=== PATIENT | male | born 1945 | race Caucasian/White ===

== ENCOUNTER 2016-11-28 10:16 | Day surgery (SDC) | payer OTHER, BC ==
[~2016-11-28] VITALS: Ht 182.9 cm; Wt 108.8 kg
[~2016-11-28 10:16] MED LIST: AMOXICILLIN875 MG PO; CELEBREX200 MG PO; CELEBREX50 MG PO; COUMADIN2.5 MG PO; COUMADIN5 MG PO; MICROZIDE12.5 M1 PO; NITROSTAT0.4 MG SL; ONE DAILY 50 P1 EACH PO; PAXIL40 MG PO; PRAVACHOL80 MG PO; SOTALOL AF160 MG PO; TAMSULOSIN HCL0.4 MG PO; TRICOR145 MG PO; XANAX0.5 MG PO
[2016-11-28 10:52] VITALS: BP 149/80
[2016-11-28 11:09] LABS: ANION GAP 7 MEQ/L (2-14); CHLORIDE 104 MEQ/L (99-109); GFR ESTIMATE (CALCULATED) > 59 mL/min/; GLUCOSE 97 mg/dL (70-99); POTASSIUM 4.1 MEQ/L (3.7-5.4); SAMPLE HEMOLYSIS CHECK 0; SAMPLE ICTERIC CHECK 0; SAMPLE LIPEMIA CHECK 0; SODIUM 142 MEQ/L (136-147); UREA NITROGEN (BUN) 14 mg/dL (9-23)
[2016-11-28 15:30] VITALS: BP 160/69
[2016-11-28 16:21] VITALS: BP 131/65
== END 2016-11-28 16:38 | disposition home or self-care (01) ==
LOC: SDC 10:16
PROVIDERS: Anesthesiology; Urology
DX: N20.1 Calculus of ureter (principal); I48.91 Unspecified atrial fibrillation; Z79.01 Long term (current) use of anticoagulants; N40.0 Benign prostatic hyperplasia without lower urinary tract symptoms; I10 Essential (primary) hypertension
CPT/HCPCS: 74000; 76000; 80048; 82365 90; C1769; C1876; J0690; J1100; J1885; J2405; J3010; J7050

== ENCOUNTER 2017-10-04 16:07 | Day surgery (SDC) | payer OTHER, BC ==
[~2017-10-04] VITALS: Ht 182.9 cm; Wt 111.9 kg
[2017-10-04] MEDS ORDERED: ATORVASTATIN CA80 MG PO (16:27)
[2017-10-04 17:24] LABS: BASOPHIL COUNT 0.1 K/uL (0-0.1); EOSINOPHIL (%) 0.2 % (0-5); IMMATURE GRANULOCYTE (%) 0.5 % (0.0-0.7); IMMATURE GRANULOCYTE COUNT 0.1 K/uL; INSTRUMENT ABS NEUTROPHIL CT 10.5 K/uL; LYMPHOCYTE COUNT 1.2 K/uL (1.0-2.8); MCH 29.8 PG (29.0-34.0); MCHC 33.4 G/DL (30.0-36.0); MCV 89.2 FL (86-99); MEAN PLAT.VOLUME 10.2 uM^3 (9.0-12.4); MONOCYTE (%) 9.7 % (3-12); MONOCYTE COUNT 1.3 K/uL (0-0.8); NEUTROPHIL (%) 79.7 % (45-76); NEUTROPHIL COUNT 10.5 K/uL (1.8-6.4); PLATELET COUNT 226 K/uL (156-360); RBC DIS.WIDTH-CV 13.2 % (11.8-14.6); RBC DIS.WIDTH-SD 43.2 % (39-53); RED BLOOD COUNT 4.93 M/uL (4.00-5.50); WHITE BLOOD COUNT 13.2 K/uL (4.1-10.2)
[2017-10-04 17:34] LABS: CHLORIDE 102 mEq/L (99-109); POTASSIUM 3.7 mEq/L (3.7-5.4); SODIUM 140 mEq/L (136-147)
[2017-10-04 17:36] LABS: GLUCOSE 122 mg/dL (70-99)
[2017-10-04 17:38] LABS: ANION GAP 13 MEQ/L (2-14); TOTAL BILIRUBIN 0.9 mg/dL (0.0-1.0)
[2017-10-04 17:40] LABS: ALKALINE PHOSPHATASE 71 IU/L (3-129); GFR ESTIMATE (CALCULATED) > 59 mL/min/
[2017-10-04 17:41] LABS: UREA NITROGEN (BUN) 14 mg/dL (9-23)
[2017-10-04 18:13] LABS: PROTHROMBIN TIME 12.8 SEC (10.2-12.9)
[2017-10-04 18:16] LABS: INTER. NORMALIZED RATIO 1.1; PTT 29.3 SEC (25-37)
[2017-10-04] MEDS ORDERED: METAXALONE800 MG PO (18:27)
[2017-10-04] MEDS ORDERED: OXYCODONE-APAP1 EAC6 PO (18:28)
[2017-10-04] MEDS ORDERED: ELIQUIS5 MG PO (18:31)
[2017-10-04] MEDS ORDERED: LO-DOSE ASPIRIN81 M2 PO (18:34)
[2017-10-04 22:13] VITALS: BP 132/73
[2017-10-05 00:03] VITALS: BP 114/57
[2017-10-05 04:03] VITALS: BP 136/65
[2017-10-05 07:34] LABS: ADD MIUA? YES; BILIRUBIN NEGATIVE; BLOOD SMALL; COLOR YELLOW ((YELLOW)); GLUCOSE (STRIP) NEGATIVE; KETONES NEGATIVE; LEUKOCYTES NEGATIVE; NITRITE NEGATIVE; PROTEIN (STRIP) NEGATIVE; SPECIFIC GRAVITY 1.017 (1.000-1.030); UROBILINOGEN 0.2 MG/DL (0.2-1.0)
[2017-10-05 07:45] LABS: BACTERIA 1+ /HPF; EPITHELIAL CELLS NONE SEEN /HPF; MUCUS TRACE /LPF; WHITE BLOOD CELLS 0-5 /HPF (0-5)
[2017-10-05 11:34] VITALS: BP 138/66
[2017-10-05 13:48] LABS: MCH 28.8 PG (29.0-34.0); MCHC 31.6 G/DL (30.0-36.0); MCV 90.9 FL (86-99); MEAN PLAT.VOLUME 10.1 uM^3 (9.0-12.4); PLATELET COUNT 230 K/uL (156-360); RBC DIS.WIDTH-CV 12.9 % (11.8-14.6); RBC DIS.WIDTH-SD 43.7 % (39-53); RED BLOOD COUNT 4.73 M/uL (4.00-5.50); WHITE BLOOD COUNT 11.7 K/uL (4.1-10.2)
[2017-10-05 14:40] LABS: ANION GAP 6 MEQ/L (2-14); CHLORIDE 100 MEQ/L (99-109); GFR ESTIMATE (CALCULATED) > 59 mL/min/; GLUCOSE 103 mg/dL (70-99); POTASSIUM 3.5 MEQ/L (3.7-5.4); SAMPLE HEMOLYSIS CHECK 0; SAMPLE ICTERIC CHECK 0; SAMPLE LIPEMIA CHECK 0; SODIUM 138 MEQ/L (136-147); UREA NITROGEN (BUN) 13 mg/dL (9-23)
[2017-10-05 15:51] VITALS: BP 132/63
[2017-10-05 22:54] VITALS: BP 167/74
[2017-10-06 04:00] VITALS: BP 133/67
[2017-10-06 07:35] VITALS: BP 136/61
[2017-10-06 13:00] VITALS: BP 167/78
[2017-10-06 16:00] VITALS: BP 133/63
[2017-10-06 23:22] VITALS: BP 127/60
[2017-10-07 04:00] VITALS: BP 128/79
[2017-10-07 06:59] LABS: HEMATOCRIT 41.9 % (38.0-50.0); MCH 29.2 PG (29.0-34.0); MCHC 32.5 G/DL (30.0-36.0); MCV 89.9 FL (86-99); MEAN PLAT.VOLUME 10.3 uM^3 (9.0-12.4); PLATELET COUNT 248 K/uL (156-360); RBC DIS.WIDTH-CV 12.7 % (11.8-14.6); RBC DIS.WIDTH-SD 41.8 % (39-53); RED BLOOD COUNT 4.66 M/uL (4.00-5.50); WHITE BLOOD COUNT 7.4 K/uL (4.1-10.2)
[2017-10-07] MEDS ORDERED: METAXALONE800 MG PO (07:55)
[2017-10-07] MEDS ORDERED: OXYCODONE-APAP1 EAC6 PO (07:55)
[2017-10-07] MEDS ORDERED: AMPICILLIN TRI500 MG PO (07:55)
[2017-10-07 08:08] VITALS: BP 154/74
[2017-10-07 11:23] LABS: CHLORIDE 101 MEQ/L (99-109); GFR ESTIMATE (CALCULATED) > 59 mL/min/; GLUCOSE 103 mg/dL (70-99); MAGNESIUM 2.4 mg/dl (1.3-2.7); POTASSIUM 5.4 MEQ/L (3.7-5.4); SODIUM 140 MEQ/L (136-147); UREA NITROGEN (BUN) 10 mg/dL (9-23)
== END 2017-10-07 13:09 | disposition home or self-care (01) ==
LOC: EME 16:07 → SDC 18:54 → ENRESERV 21:31 → 2SOUTH 21:36 → 3EAST 21:36 → 2SOUTH 21:36 → ENRESERV 21:44 → 3EAST 22:04 → ENPENDDIS 10-07 → 3EAST 10-07 13:09
PROVIDERS: Emergency Medicine; Nurse Practitioner Family; Physician Assistant
PROC: 00CU0ZZ Extirpation of Matter from Spinal Canal, Open Approach (ICD-10-PCS; principal; 2017-10-04)
DX: G97.61 Postprocedural hematoma of a nervous system organ or structure following a nervous system procedure (principal); G89.18 Other acute postprocedural pain; I48.91 Unspecified atrial fibrillation; N39.0 Urinary tract infection, site not specified; B95.2 Enterococcus as the cause of diseases classified elsewhere; R41.0 Disorientation, unspecified; R44.3 Hallucinations, unspecified; E78.5 Hyperlipidemia, unspecified; F41.9 Anxiety disorder, unspecified; Z79.82 Long term (current) use of aspirin; Z79.01 Long term (current) use of anticoagulants
CPT/HCPCS: 70450; 80048; 80053; 81003; 83735; 85025; 85027; 85610; 85730; 87070; 87075; 87077; 87086; 87186; 87205; 93005; 94799; 99281; 99285; G0378; J0131; J0290; J0330; J0690; J1100; J1170; J1580; J2270; J2405; J2710; J2930; J3010; J3370; J3480; J7030; J7050; S0020

== ENCOUNTER 2018-06-24 12:46 | Emergency (ER) | payer OTHER, BC ==
[~2018-06-24 12:46] MED LIST changes: +AMPICILLIN TRI500 MG PO; +ATORVASTATIN CA80 MG PO; +ELIQUIS5 MG PO; +LO-DOSE ASPIRIN81 M2 PO; +METAXALONE800 MG PO; +OXYCODONE-APAP1 EAC6 PO
[2018-06-24 13:07] LABS: BASOPHIL (%) 0.9 % (0-1); BASOPHIL COUNT 0.1 K/uL (0-0.1); EOSINOPHIL (%) 2.5 % (0-5); EOSINOPHIL COUNT 0.2 K/uL (0-0.3); HEMATOCRIT 50.3 % (38.0-50.0); HEMOGLOBIN 16.8 G/DL (12.5-16.6); IMMATURE GRANULOCYTE (%) 0.6 % (0.0-0.7); LYMPHOCYTE (%) 11.6 % (15-42); MCHC 33.4 G/DL (30.0-36.0); MCV 89.8 FL (86-99); MONOCYTE (%) 4.1 % (3-12); MONOCYTE COUNT 0.4 K/uL (0-0.8); NEUTROPHIL (%) 80.3 % (45-76); NEUTROPHIL COUNT 6.8 K/uL (1.8-6.4); PLATELET COUNT 222 K/uL (156-360); RBC DIS.WIDTH-CV 13.8 % (11.8-14.6); RBC DIS.WIDTH-SD 45.4 % (39-53); WHITE BLOOD COUNT 8.5 K/uL (4.1-10.2)
[2018-06-24 13:19] LABS: AMYLASE 45 IU/L (1-118); CHLORIDE 103 mEq/L (99-109); POTASSIUM 4.4 mEq/L (3.7-5.4); SODIUM 142 mEq/L (136-147)
[2018-06-24 13:21] LABS: GLUCOSE 128 mg/dL (70-99)
[2018-06-24 13:24] LABS: SERUM ETHYL ALCOHOL < 10 mg/dL
[2018-06-24 13:25] LABS: GFR ESTIMATE (CALCULATED) > 59 mL/min/ (58.99-99999)
[2018-06-24 13:26] LABS: UREA NITROGEN (BUN) 18 mg/dL (9-23)
[2018-06-24 13:28] LABS: LIPASE 47 U/L (1.0-51.0)
[2018-06-24 13:42] LABS: INTER. NORMALIZED RATIO 3.3
[2018-06-24 14:44] LABS: TROP-I INTERPRETATION NEGATIVE; TROPONIN-I < 0.01 ng/mL (0.0-0.30)
[2018-06-24] MEDS ORDERED: PERCOCET 5/31 TABLET PO (15:18)
== END 2018-06-24 15:43 | disposition home or self-care (01) ==
LOC: TRA 12:46
PROVIDERS: Emergency Medicine
PROC: 3E0234Z Introduction of Serum, Toxoid and Vaccine into Muscle, Percutaneous Approach (ICD-10-PCS; principal; 2018-06-24)
DX: S20.229A Contusion of unspecified back wall of thorax, initial encounter (principal); S32.038A Other fracture of third lumbar vertebra, initial encounter for closed fracture; S32.048A Other fracture of fourth lumbar vertebra, initial encounter for closed fracture; S80.811A Abrasion, right lower leg, initial encounter; S06.9X9A Unspecified intracranial injury with loss of consciousness of unspecified duration, initial encounter; R06.02 Shortness of breath; W11.XXXA Fall on and from ladder, initial encounter; Z23 Encounter for immunization; R91.1 Solitary pulmonary nodule; K76.0 Fatty (change of) liver, not elsewhere classified; K80.20 Calculus of gallbladder without cholecystitis without obstruction; N20.0 Calculus of kidney; N28.1 Cyst of kidney, acquired; M47.896 Other spondylosis, lumbar region; M51.24 Other intervertebral disc displacement, thoracic region; M47.894 Other spondylosis, thoracic region; M25.78 Osteophyte, vertebrae; I48.91 Unspecified atrial fibrillation; Z79.01 Long term (current) use of anticoagulants; E78.00 Pure hypercholesterolemia, unspecified
CPT/HCPCS: 70450; 71260; 72125; 72129; 72132; 73590; 74177; 80048; 81003; 82150; 83690; 84484; 85025; 85610; 86850; 86900; 86901; 93005; 99281; 99285; G0480; J3010